=== PATIENT | female | born 1975 | race Asian ===

== ENCOUNTER 2024-01-19 11:24 | Emergency (ER) | payer MEDICAID ==
[~2024-01-19] VITALS: Ht 167.6 cm; Wt 70.5 kg
[2024-01-19 11:29] VITALS: TEMP 98.2
[2024-01-19] MEDS: OxyCODONE HCL/ACETAMINOPHEN 5-325 MG TABLET PO ONE (11:58)
[2024-01-19] MEDS: KETOROLAC TROMETHAMINE 60 MG/2 ML VIAL IM ONE (11:59)
[2024-01-19] MEDS ORDERED: IBUP-1492 PO (13:38)
[2024-01-19 13:54] VITALS: BP 117/72; PULSE 73; RESP 18; O2SAT 98
== END 2024-01-19 13:58 | disposition home or self-care (01) ==
LOC: EMS 11:41
DX: M17.11 Unilateral primary osteoarthritis, right knee (principal); Z98.890 Other specified postprocedural states
CPT/HCPCS: 99283; 29505; 73562; 96372; J1885